=== PATIENT | male | born 1995 | race Caucasian/White ===

== ENCOUNTER 2024-02-01 17:11 | Outpatient (REF) | payer BC, SELFPAY ==
--- NOTE | 2024-02-01 09:30 | SKI_PTH ---
PATIENT: Vaughn Aviles LOC: [facility] U#:[id number] AGE/SX: 28/M ROOM: RE02/01/[address]: Ibrahima Yap : 1995 BED: DIS: 02/01/2024 SPEC #: [id number] RECD: 02/01/24 17:23 STATUS: TIM REQ #: [id number] KRISTIN: 02/01/24 09:[address]: Ibrahima Yap DEPT: Surgical Specimen RECD BY: Ana M Pena ENTERED: 02/01/24 17:23 SP TYPE: NENO BRAR DR: Unknown,Unknown Tissues: 1 - SKIN BIOPSY(SHAVE/PUNCH) Procedures: SKIN LEVEL 4 SPECIAL STAIN 1 Comments: [id number]
== END 2024-02-01 17:12 | disposition home or self-care (01) ==
LOC: LBN 17:11
PROVIDERS: Visit Provider Family Medicine
DX: B40.9 Blastomycosis, unspecified (principal)
CPT/HCPCS: 88305; 88312

== ENCOUNTER 2024-02-08 21:36 | Outpatient (REF) | payer BC, SELFPAY ==
[2024-02-08 22:02] LABS: ALT 56 U/L (16-63); AST 29 U/L (15-37)
== END 2024-02-08 21:37 | disposition home or self-care (01) ==
LOC: NCHCN 21:36
PROVIDERS: Visit Provider Nurse Practitioner Family
DX: B40.89 Other forms of blastomycosis (principal)
CPT/HCPCS: 84450; 84460

== ENCOUNTER 2024-03-23 16:39 | Outpatient (REF) | payer BC, SELFPAY ==
[2024-03-23 21:35] LABS: ALT 38 U/L (16-63); AST 24 U/L (15-37); Albumin 3.5 g/dL (3.4-5.0); Alkaline Phosphatase 213 U/L (46-116); Bilirubin, Direct 0.1 mg/dL (0.0-0.2); Bilirubin, Total 0.26 mg/dL (0.2-1.0); Total Protein 7.7 g/dL (6.4-8.2)
== END 2024-03-23 16:40 | disposition home or self-care (01) ==
LOC: NCHCN 16:39
PROVIDERS: Visit Provider Nurse Practitioner Family
DX: R10.10 Upper abdominal pain, unspecified (principal)
CPT/HCPCS: 80076

== ENCOUNTER 2024-08-30 16:37 | Outpatient (REF) | payer BC, SELFPAY ==
[2024-08-30 22:30] LABS: ALT 41 U/L (16-63); AST 28 U/L (15-37); Albumin 4.1 g/dL (3.4-5.0); Alkaline Phosphatase 215 U/L (46-116); Anion Gap 8.6 mmol/L (3-11); BUN 14 mg/dL (7-18); Bilirubin, Total 0.3 mg/dL (0.2-1.0); CO2 29.4 mmol/L (21.0-32.0); CREATININE 0.9 mg/dL (0.70-1.30); Calcium 10.1 mg/dL (8.5-10.1); Chloride 102 mmol/L (98-107); Glucose 86 mg/dL (74-106); Potassium 4.5 mmol/L (3.5-5.1); Sodium 140 mmol/L (136-145); Total Protein 8.1 g/dL (6.4-8.2)
[2024-08-30 22:45] LABS: Calculated LDL 180 mg/dL (<100); Cholesterol 255 mg/dL (<200); HDL Cholesterol 54 mg/dL (>or=40); Triglyceride 108 mg/dL (<150)
[2024-08-31 13:32] LABS: GGT 42 U/L (15-85)
== END 2024-08-30 16:38 | disposition home or self-care (01) ==
LOC: NCHCN 16:37
PROVIDERS: Visit Provider Nurse Practitioner Family
DX: R74.8 Abnormal levels of other serum enzymes (principal); R03.0 Elevated blood-pressure reading, without diagnosis of hypertension; E66.9 Obesity, unspecified
CPT/HCPCS: 80053; 80061; 82977

== ENCOUNTER 2024-09-29 21:55 | Outpatient (REF) | payer BC, SELFPAY ==
[2024-09-29 22:14] LABS: ALT 35 U/L (16-63); AST 25 U/L (15-37)
[2024-10-05 15:30] LABS: Histoplasma/Blastomyces Result Not Detected (NotDetected); Histoplasma/Blastomyces Value Not Detected
[2024-10-11 09:07] LABS: Misc Referral (MAYO) See Comments
== END 2024-09-29 21:56 | disposition home or self-care (01) ==
LOC: NCHCN 21:55
PROVIDERS: Visit Provider Nurse Practitioner Family
DX: B09 Unspecified viral infection characterized by skin and mucous membrane lesions (principal); R74.8 Abnormal levels of other serum enzymes
CPT/HCPCS: 84075; 84080; 87449; 84450; 84460

== ENCOUNTER 2024-10-06 00:24 | Outpatient (CLI) | payer BC, SELFPAY ==
--- NOTE | 2024-10-06 15:50 | DI.RAD_ITS ---
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 TECHNIQUE: 2D digital imaging was performed. COMPARISON: No exams were available for comparison FINDINGS: 2 views: Heart size is normal. The mediastinum is not widened. Lungs are clear. No infiltrates nor pleural effusions. IMPRESSION: No acute pulmonary findings. DATA REPOSITORY: RADIATION DOSE DELIVERED:
== END 2024-10-06 00:44 ==
PROVIDERS: PCP Nurse Practitioner Family; Visit Provider Nurse Practitioner Family
DX: B40.9 Blastomycosis, unspecified (principal)
CPT/HCPCS: 71046

== ENCOUNTER 2024-11-30 15:37 | Outpatient (REF) | payer BC, SELFPAY ==
[2024-11-30 20:54] LABS: Alkaline Phosphatase 203 U/L (46-116)
== END 2024-11-30 15:38 | disposition home or self-care (01) ==
LOC: NCHCN 15:37
PROVIDERS: PCP Nurse Practitioner Family; Visit Provider Nurse Practitioner Family
DX: R74.8 Abnormal levels of other serum enzymes (principal)
CPT/HCPCS: 84075

== ENCOUNTER 2025-01-02 16:00 | Outpatient (REF) | payer BC, SELFPAY ==
[2025-01-02 21:58] LABS: Alkaline Phosphatase 169 U/L (46-116)
== END 2025-01-02 16:01 | disposition home or self-care (01) ==
LOC: NCHCN 16:00
PROVIDERS: PCP Nurse Practitioner Family; Visit Provider Nurse Practitioner Family
DX: R74.8 Abnormal levels of other serum enzymes (principal)
CPT/HCPCS: 84075

== ENCOUNTER 2025-01-31 17:18 | Outpatient (REF) | payer BC, SELFPAY ==
[2025-01-31 21:51] LABS: Alkaline Phosphatase 169 U/L (46-116)
== END 2025-01-31 17:19 | disposition home or self-care (01) ==
LOC: NCHCN 17:18
PROVIDERS: PCP Nurse Practitioner Family; Visit Provider Nurse Practitioner Family
DX: R74.8 Abnormal levels of other serum enzymes (principal)
CPT/HCPCS: 84075

== ENCOUNTER 2025-04-03 18:50 | Outpatient (REF) | payer BC, SELFPAY ==
[2025-04-03 20:37] LABS: Alkaline Phosphatase 144 U/L (46-116)
== END 2025-04-03 18:51 | disposition home or self-care (01) ==
LOC: NCHCN 18:50
PROVIDERS: PCP Nurse Practitioner Family; Visit Provider Nurse Practitioner Family
DX: R74.8 Abnormal levels of other serum enzymes (principal)
CPT/HCPCS: 84075